=== PATIENT | male | born 1950 | race African-American/Black ===

== ENCOUNTER 2025-10-10 14:40 | Emergency (ER) | payer MEDICARE, OTHER ==
[~2025-10-10] VITALS: Ht 175.3 cm; Wt 72.0 kg
[2025-10-10 14:42] VITALS: O2SAT 100
[2025-10-10] MEDS: LIDOCAINE HCL 1% 20ML VIAL INFIL ONE (15:34)
[2025-10-10] MEDS: SODIUM CHLORIDE 0.9% 1,000 ML IV ONE (15:35)
[2025-10-10 16:04] LABS: *AMPHETAMINES SCREEN URINE NEGATIVE (NEGATIVE); *BENZODIAZEPINES SCREEN URINE NEGATIVE (NEGATIVE)
[2025-10-10 16:05] LABS: *BARBITURATES SCREEN URINE NEGATIVE (NEGATIVE); *COCAINE SCREEN URINE NEGATIVE (NEGATIVE); CANNABINOID URINE SCREEN NEGATIVE (NEGATIVE); ECSTASY MDMA SCREEN URINE NEGATIVE (NEGATIVE); METHADONE URINE SCREEN NEGATIVE (NEGATIVE); OPIATES URINE SCREEN NEGATIVE (NEGATIVE); PHENCYCLIDINE URINE SCREEN NEGATIVE (NEGATIVE)
[2025-10-10 16:05] LABS: BASOPHILS % 0.3 % (0.0-2.0); EOSINOPHILS % 1.1 % (0.0-5.0); HEMATOCRIT. 39.6 % (42.0-52.0); HEMOGLOBIN. 12.7 g/dL (14.0-18.0); LYMPHOCYTES % 13.9 % (20.0-50.0); MEAN PLATELET VOLUME 7.8 fl (7.4-10.4); MONOCYTES % 3.3 % (2.0-8.0); NEUTROPHILS % 81.4 % (40.0-76.0); PLATELET 258 x1000/uL (130-400); RED BLOOD CELL COUNT 4.38 mill/uL (4.7-6.1); RED CELL DISTRIBUTION WIDTH 15.0 % (11.6-14.6)
[2025-10-10 16:19] LABS: INR 0.9
[2025-10-10 16:20] LABS: TROPONIN I HIGH SENSITIVITY < 4 ng/L (3.0-53)
[2025-10-10 16:21] LABS: ASPARTATE AMINOTRANSFERASE 31 IU/L (<34); CREATININE 1.7 mg/dL (0.6-1.3); UREA NITROGEN BLOOD 16 mg/dL (9-23)
[2025-10-10 16:23] LABS: BILIRUBIN DIRECT 0.2 mg/dL (<=3.0); BILIRUBIN TOTAL 0.7 mg/dL (0.1-1.0); PROTEIN TOTAL 6.9 g/dL (6.0-8.3)
[2025-10-10 19:05] LABS: TROPONIN I HIGH SENSITIVITY < 4 ng/L (3.0-53)
[2025-10-10 20:04] VITALS: BP 124/66; PULSE 96; RESP 18; TEMP 37.1; O2SAT 99
[2025-10-10] MEDS ORDERED: NAPR-681 MT (21:30)
== END 2025-10-10 22:15 | disposition home or self-care (01) ==
LOC: ER 14:40
DX: S01.511A Laceration without foreign body of lip, initial encounter (principal); E11.9 Type 2 diabetes mellitus without complications; Z79.899 Other long term (current) drug therapy; Z79.01 Long term (current) use of anticoagulants; W01.0XXA Fall on same level from slipping, tripping and stumbling without subsequent striking against object, initial encounter; Y93.89 Activity, other specified; Y92.89 Other specified places as the place of occurrence of the external cause; Y99.8 Other external cause status
CPT/HCPCS: 80076; 80305; 80048; 80320; 85025; 85610; 85730; 84484; 36415; 71045; 70450; 70486; 72125; 93005; 96360; 96361; 99285; J2003; J7030; G0480